=== PATIENT | female | born 1990 | race African-American/Black ===

== ENCOUNTER 2017-03-12 12:18 | Emergency (ER) | payer SELFPAY ==
--- NOTE | 2017-03-12 14:25 | PDOC ---
History of Present Illness - General Chief Complaint: Pain, Acute Stated Complaint: ABDOMINAL PAIN Time Seen by Provider: 03/12/17 13:35 Past History - Past Medical History Allergies/Adverse Reactions: Allergies Allergy/AdvReac Type Severity Reaction Status Date / Time No Known Allergies Allergy Verified 03/12/17 12:20 Home Medications: Ambulatory Orders Ondansetron [Zofran *Odt*] 8 mg SL TID #20 od.tablet 06/04/14 - Immunization History Td Vaccination: Yes Immunization Up to Date: Yes - Suicide/Smoking/Psychosocial Hx Smoking History: Never smoked Hx Alcohol Use: No Medical Decision Making - Medical Decision Making 03/12/17 14:25 Unable to locate patient within the assigned room, ER, waiting area or more weeks. Patient will be considered left for medical evaluation. *DC/Admit/Observation/Transfer Diagnosis at time of Disposition: Abdominal pain - Discharge Dispostion Disposition: LEFT BEFORE [facility] Condition at time of disposition: Unchanged/Unknown - Referrals - Patient Instructions - Post Discharge Activity
== END 2017-03-12 13:40 | disposition left against medical advice (07) ==
LOC: JER 12:18
DX: Z53.21 Procedure and treatment not carried out due to patient leaving prior to being seen by health care provider (principal)
CPT/HCPCS: 99281-25

== ENCOUNTER 2018-02-25 23:17 | Emergency (ER) | payer OTHER ==
[2018-02-25 23:38] VITALS: BP 100/67; PULSE 97; TEMP 97.6; BMI 22.8
--- NOTE | 2018-02-25 23:38 | PDOC ---
History of Present Illness - General Chief Complaint: Chest Pain Stated Complaint: CHEST PAIN Time Seen by Provider: 02/25/18 23:29 - History of Present Illness Initial Comments: 02/26/18 00:07 This 27-year-old woman , 5 months presents with epigastric pain for the last several hours. Patient states that she ate salsa with cheese and peppers at approximately 6 PM. Approximately one hour later she developed epigastric pain which has continued since then. She had some relief after she walked outside but pain recurred. She biscuit approximately 8 PM without change in discomfort. Pain is worse when she is recumbent. She denies nausea/vomiting/diarrhea. There has been none fever or chills. Last bowel movement was earlier today and was normal. She has no history of GERD or gallbladder disease. She states that she did not have indigestion or reflux during her previous . She denies dysuria/urinary urgency/ hematuria. She has no vaginal discharge or bleeding. Although she has felt slightly short of breath with the pain, she denies cough/ severe shortness of breath/wheezing. No history of DM/HTN/hyperlipidemia. Patient is a nonsmoker and has no strong family history of cardiac disease. Past History - Past Medical History Allergies/Adverse Reactions: Allergies Allergy/AdvReac Type Severity Reaction Status Date / Time No Known Allergies Allergy Verified 03/12/17 12:20 Home Medications: Ambulatory Orders NK [No Known Home Medication] 02/25/18 COPD: No Other medical history: 5 MONTHS - Immunization History Td Vaccination: Yes Immunization Up to Date: Yes - Suicide/Smoking/Psychosocial Hx Smoking History: Never smoked Hx Alcohol Use: No Review of Systems - Review of Systems Able to Perform ROS?: Yes Comments:: 12 point review of systems is negative except for what is noted in the history of present illness *Physical Exam - Vital Signs Last Vital Signs Temp Pulse Resp BP Pulse Ox 97.6 F 97 H 18 100/67 97 02/25/18 23:26 02/25/18 23:26 02/25/18 23:26 02/25/18 23:26 02/25/18 23:26 - Physical Exam Comments: GENERAL: HEAD: Normal with no signs of trauma. EYES: PERRLA, EOMI, sclera anicteric, conjunctiva clear. ENT: Ears normal, nares patent, oropharynx clear without exudates. Moist mucous membranes. NECK: Normal range of motion, supple without lymphadenopathy, JVD, or masses. LUNGS: Breath sounds equal, clear to auscultation bilaterally. No wheezes, and no crackles. HEART:Regular rate and rhythm, normal S1 and S2 without murmur, rub or gallop. ABDOMEN:.normal bowel sounds No guarding or rebound.No masses No distention. No epigastric or other abdominal tenderness except for positive Mayes sign in the right upper quadrant EXTREMITIES: Normal range of motion, no edema. No clubbing or cyanosis. No erythema, or tenderness. NEUROLOGICAL: Cranial nerves II through XII grossly intact. Normal speech. No focal neurological deficits. MUSCULOSKELETAL: Back non-tender to palpation, no CVA tenderness SKIN: Warm, Dry, normal turgor, no rashes or lesions noted. Moderate Sedation - Procedure Monitoring Vital Signs: Procedure Monitoring Vital Signs Temperature 97.6 F 02/25/18 23:26 Pulse Rate 97 H 02/25/18 23:26 Respiratory Rate 18 02/25/18 23:26 Blood Pressure 100/67 02/25/18 23:26 O2 Sat by Pulse Oximetry (%) 97 02/25/18 23:26 ED Treatment Course - LABORATORY CBC & Chemistry Diagram: 02/26/18 00:10 02/26/18 00:10 - ADDITIONAL ORDERS Additional order review: Laboratory Results 02/26/18 00:10 Sodium 139 Potassium 4.0 Chloride 108 H Carbon Dioxide 22 Anion Gap 9 BUN 7 Creatinine 0.5 L Creat Clearance w eGFR > 60 Random Glucose 86 Calcium 8.5 Total Bilirubin 0.2 AST 14 L ALT 28 Alkaline Phosphatase 55 Total Protein 6.3 L Albumin 3.2 L 02/26/18 00:10 RBC 3.56 L MCV 85.7 MCHC 33.7 RDW 14.1 MPV 9.6 Neutrophils % 62.7 D Lymphocytes % 29.3 D Monocytes % 6.1 Eosinophils % 1.3 D Basophils % 0.6 - RADIOLOGY Radiology Studies Ordered: Category Date Time Status GALLBLADDER US [US] Stat Ultrasound 02/26/18 00:00 Taken - Medications Given in the ED: ED Medications Discontinued Medications Generic Name Dose Route Start Last Admin Trade Name Freq PRN Reason Stop Dose Admin Acetaminophen 650 mg 02/26/18 00:40 02/26/18 01:32 Tylenol - PO 02/26/18 00:41 Not Given ONCE ONE Al Hydroxide/Mg Hydroxide 30 ml 02/26/18 00:01 02/26/18 00:08 Mylanta Oral Suspension - PO 02/26/18 00:02 30 ml ONCE ONE Administration Medical Decision Making - Medical Decision Making 02/26/18 00:16 This 27-year-old woman, early second trimester, presents with several hour history of epigastric pain that began after high-fat/acidic meal . Exam notable for right upper quadrant abdominal tenderness, worse with inspiration. Most likely diagnoses: GERD versus biliary colic. Patient has no risk factors for coronary artery disease and no associated symptoms suggestive of cardiac etiology of this pain. 12-lead electrocardiogram was performed: Normal sinus rhythm at 82 bpm; axis, intervals and wave forms are all normal. No evidence of acute ST or T-wave abnormalities. There are no Q waves. There is no evidence of acute cardiac arrhythmia. CBC/chemistry profile sent. Gallbladder ultra sound will be performed to evaluate for gallstones. Maalox suspension, 30 mL given. *DC/Admit/Observation/Transfer Diagnosis at time of Disposition: Biliary colic - Discharge Dispostion Disposition: HOME Condition at time of disposition: Stable - Referrals Referrals: Mihai Roca [Primary Care Provider] - - Patient Instructions Printed Discharge Instructions: DI for Biliary Colic Additional Instructions: Avoid fat in your diet Drink plenty of water You can take Tylenol as needed for pain Maalox can also be taken as needed for epigastric discomfort Return to ER immediately if you have severe, persistent pain or experience fever /vomiting Follow-up with your primary care doctor within the next 5 days - Post Discharge Activity
[2018-02-25] MEDS ORDERED: MAG HYDROX/AL HYDROX/SIMETH 30 ML UNIT-DOSE CUP ONE (23:58)
[2018-02-26] MEDS ORDERED: MAG HYDROX/AL HYDROX/SIMETH 30 ML UNIT-DOSE CUP PO ONE (00:01)
[2018-02-26] MEDS ORDERED: MAG HYDROX/AL HYDROX/SIMETH 30 ML UNIT-DOSE CUP ONE (00:02)
[2018-02-26] MEDS ORDERED: ACETAMINOPHEN 325 MG TABLET (FP) PO ONE (00:40)
[2018-02-26 00:51] LABS: BASO % 0.6 % (0-2.0); EOS % 1.3 % (0-4.5); HEMATOCRIT 30.5 % (32.4-45.2); HEMOGLOBIN 10.3 GM/dL (10.7-15.3); LYMPH % 29.3 % (8-40); MCH 28.8 pg (25.7-33.7); MCHC 33.7 g/dl (32.0-36.0); MEAN CELL VOLUME 85.7 fl (80-96); MEAN PLT VOLUME 9.6 fl (7.5-11.1); MONO % 6.1 % (3.8-10.2); NEUT % 62.7 % (42.8-82.8); PLATELET COUNT 189 K/MM3 (134-434); RBC 3.56 M/mm3 (3.60-5.2); RDW 14.1 % (11.6-15.6); WHITE BLOOD COUNT 8.5 K/mm3 (4.0-10.0)
[2018-02-26 01:19] LABS: ALBUMIN 3.2 g/dl (3.4-5.0); ALK PHOS 55 U/L (45-117); ANION GAP 9 MMOL/L (8-16); BILIRUBIN,TOTAL 0.2 mg/dL (0.2-1); BLOOD UREA NITROGEN 7 mg/dL (7-18); CALCIUM 8.5 mg/dL (8.5-10.1); CHLORIDE 108 mmol/L (98-107); CO2 22 mmol/L (21-32); CREATININE 0.5 mg/dL (0.55-1.3); GLUCOSE,RANDOM 86 mg/dL (74-106); SGOT/AST 14 U/L (15-37); SGPT/ALT 28 U/L (13-61); SODIUM 139 mmol/L (136-145); TOT PROT 6.3 g/dl (6.4-8.2)
--- NOTE | 2018-02-28 12:47 | EKG ---
Test Reason : Blood Pressure : / mmHG Vent. Rate : 082 BPM Atrial Rate : 082 BPM P-R Int : 154 ms QRS Dur : 072 ms QT Int : 344 ms P-R-T Axes : 051 054 041 degrees QTc Int : 401 ms NORMAL SINUS RHYTHM NORMAL ECG NO PREVIOUS ECGS AVAILABLE Confirmed by EUNICE JIN, PRASHANTH ([id number]) on 02/28/2018 12:46:52 PM Referred By: MD QUIJANO Confirmed By:PRASHANTH DAWSON MD
== END 2018-02-26 02:00 | disposition home or self-care (01) ==
LOC: FER 23:17
DX: O26.892 Other specified pregnancy related conditions, second trimester (principal); Z3A.00 Weeks of gestation of pregnancy not specified; K80.50 Calculus of bile duct without cholangitis or cholecystitis without obstruction
CPT/HCPCS: 36415; 76705-TC; 80053; 85025; 93005; 99282-25

== ENCOUNTER 2021-12-11 09:40 | Emergency (ER) | payer BC, OTHER ==
[2021-12-11 10:07] VITALS: BP 113/77; PULSE 79; RESP 18; TEMP 99.6; BMI 25.0
== END 2021-12-11 10:38 | disposition home or self-care (01) ==
LOC: FER 09:40
DX: J02.9 Acute pharyngitis, unspecified (principal); R05.1 Acute cough; R09.81 Nasal congestion
CPT/HCPCS: 0241U-QW; 99283-25